=== PATIENT | female | born 1985 | race Hispanic/Latino ===

== ENCOUNTER 2017-11-19 11:24 | Emergency (ER) | payer MEDICAID | END 2017-11-19 12:34 | disposition home or self-care (01) | LOC: EDH 11:24 | DX: O26.892 Other specified pregnancy related conditions, second trimester (principal); R20.2 Paresthesia of skin; E11.9 Type 2 diabetes mellitus without complications; Z98.890 Other specified postprocedural states; Z3A.19 19 weeks gestation of pregnancy | CPT/HCPCS: 99281 ==